=== PATIENT | male | born 1995 | race Caucasian/White ===

== ENCOUNTER 2018-02-24 15:27 | Emergency (ER) | payer OTHER, SELFPAY ==
[2018-02-24 15:33] VITALS: BP 125/74; PULSE 74; RESP 18; TEMP 36.9; O2SAT 100
--- NOTE | 2018-02-24 15:44 | PC.NURSE ---
Pt has been feeling intermittently nauseated and vomiting for about a week. Worsened over the weekend and has not been able to keep anything down. States he and his family did try out their new smoker and had some pork shoulder and everyone in the family had diarrhea for about a day after this. He was feeling ill prior to this, however. Denies abdominal pain, denies blood in vomit or stool. 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 He takes aloe vera and alkaline additives to his water for this, however he states he checks his pH daily and this has been normal. Last vomited this morning.
--- NOTE | 2018-02-24 16:03 | ED.NAVMDI ---
HPI - Nausea/Vomiting/Diarrhea <Erum Vera PA-C - Last Filed: 02/24/18 21:38> General Chief complaint: Nausea/Vomiting/Diarrhea Stated complaint: thinks he is dehydrated Time Seen by Provider: 02/24/18 15:37 Source: patient Mode of arrival: ambulatory Limitations: no limitations History of Present Illness HPI Narrative: This 23-year-old male comes to ED due to nausea, vomiting and diarrhea. He states that all last week he had intermittent vomiting and diarrhea. This got better for a few days over the weekend, but then started again on Thursday. He states that he would have 2-4 episodes of vomiting and diarrhea daily typically. This morning, he vomited once, mostly bilious and had 1 loose stool. He has not had blood in the stools. He has not had any urinary symptoms. He denies STD concerns. He denies any recent travel, dietary changes or possible food triggers. Mom states that no one else in the family has been sick though they had mentioned to nurse that family had a barbecued pork shoulder over the weekend that cause some GI upset. He has not taken any new medications or recent antibiotics. He states he really is not having any abdominal pain aside from some minimal cramping with the diarrhea. He states he has not had any fever but he has felt more cold and chilled today. He has not had any recent illness, upper respiratory symptoms, or other new complaints on systems review Related Data Previous Rx's Medication Instructions Recorded ondansetron 4 mg PO Q6-8H #8 tab 02/24/18 Allergies Allergy/AdvReac Type Severity Reaction Status Date / Time No Known Drug Allergies Allergy Verified 02/24/18 15:35 Review of Systems <Erum Vera PA-C - Last Filed: 02/24/18 21:38> Review of Systems All systems reviewed & are unremarkable except as noted in HPI and below Exam <Erum Vera PA-C - Last Filed: 02/24/18 21:38> Narrative Exam Narrative: GENERAL APPEARANCE: Patient sitting comfortably, in no distress. HEENT: PERRL, EOMI, no scleral icterus NECK: Supple LUNGS: Clear to auscultation bilaterally. HEART: Rate and rhythm regular, normal S1 and S2, no S3 or S4. ABDOMEN: Soft, nontender, nondistended, bowel sounds present x 4 quadrants, no masses palpable, no hepatosplenomegaly. EXTREMITIES: No edema, no cyanosis DERMATOLOGIC: No jaundice or exanthem NEUROLOGIC: Alert and oriented, normal speech and coordination Initial Vital Signs Initial Vital Signs: Vital Signs Temperature 98.4 F 02/24/18 15:33 Pulse Rate 74 02/24/18 15:33 Respiratory Rate 18 02/24/18 15:33 Blood Pressure 125/74 02/24/18 15:33 Pulse Oximetry 100 02/24/18 15:33 <Esperanza Burt DO - Last Filed: 02/25/18 08:54> Initial Vital Signs Initial Vital Signs: Vital Signs Temperature 98.4 F 02/24/18 15:33 Pulse Rate 74 02/24/18 15:33 Respiratory Rate 18 02/24/18 15:33 Blood Pressure 125/74 02/24/18 15:33 Pulse Oximetry 100 02/24/18 15:33 Course <Erum Vera PA-C - Last Filed: 02/24/18 21:38> Additional Information: patient reported feeling much improved during his stay and was tolerating oral fluids and crackers prior to d/c. He did not have any recurrent diarrhea or vomiting during his stay Orders Ordered: Discontinued Medications Sodium Chloride (Normal Saline 0.9%) 1,000 mls @ 1,000 mls/hr IV BOLUS ONE Stop: 02/24/18 17:42 Last Infusion: 02/24/18 18:14 Dose: 0 mls/hr Admin: 02/24/18 16:45 Dose: 1,000 mls/hr Ondansetron HCl (Zofran) 4 mg IV NOW ONE Stop: 02/24/18 16:22 Last Admin: 02/24/18 16:42 Dose: 4 mg Vital Signs - 8 hr 02/24/18 15:33 02/24/18 17:59 Temperature 98.4 F Pulse Rate 74 77 Respiratory Rate 18 Blood Pressure 125/74 Blood Pressure [Left Arm] 112/58 L Pulse Oximetry 100 99 <Esperanza Burt DO - Last Filed: 02/25/18 08:54> Orders Ordered: Discontinued Medications Sodium Chloride (Normal Saline 0.9%) 1,000 mls @ 1,000 mls/hr IV BOLUS ONE Stop: 02/24/18 17:42 Last Infusion: 02/24/18 18:14 Dose: 0 mls/hr Admin: 02/24/18 16:45 Dose: 1,000 mls/hr Ondansetron HCl (Zofran) 4 mg IV NOW ONE Stop: 02/24/18 16:22 Last Admin: 02/24/18 16:42 Dose: 4 mg Vital Signs - 8 hr 02/24/18 15:33 02/24/18 17:59 Temperature 98.4 F Pulse Rate 74 77 Respiratory Rate 18 Blood Pressure 125/74 Blood Pressure [Left Arm] 112/58 L Pulse Oximetry 100 99 MDM - Nausea/Vomiting/Diarrhea <Erum Vera PA-C - Last Filed: 02/24/18 21:38> Lab Data Result diagrams: 02/24/18 16:34 02/24/18 16:34 Lab Results 02/24/18 02/24/18 Range/Units 16:34 16:34 WBC 6.1 (4.5-11.0) X10^3/uL RBC 5.10 (4.5-5.9) X10^6/uL Hgb 15.7 (13.5-17.5) g/dL Hct 45.5 (41-53) % MCV 89.3 (80-100) fL MCH 30.8 (26-34) PG MCHC 34.5 (30-36) % RDW 13.4 (11.6-14.8) % Plt Count 171 (150-400) X10^3/uL Neut % (Auto) 65.2 (50-75) % Lymph % (Auto) 26.3 (25-40) % [place] % (Auto) 6.5 (3-14) % Eos % (Auto) 1.5 L (2-4) % Baso % (Auto) 0.5 (0-2) % Neut # (Auto) 4000 (4097-7131) /uL Sodium 142 (137-145) mmol/L Potassium 4.2 (3.4-5.1) mmol/L Chloride 103 (98-107) mmol/L Carbon Dioxide 28 (22-32) mmol/L BUN 11 (9-20) mg/dL Creatinine 1.00 (0.66-1.25) mg/dL Estimated GFR > 60.0 (>60) mL/min BUN/Creatinine Ratio 11.0 (6-22) Glucose 91 (70-100) mg/dL Calcium 9.4 (8.4-10.2) mg/dL Total Bilirubin 0.9 (0.2-1.3) mg/dL AST 23 (17-59) IU/L ALT 36 (21-72) IU/L Alkaline Phosphatase 55 (38-126) U/L Total Protein 7.4 (6.3-8.2) g/dL Albumin 4.6 (3.5-5.0) g/dL Globulin 2.8 (1.7-4.1) g/dL Albumin/Globulin Ratio 1.6 (1.0-2.8) Lipase 42 (23-300) U/L <Esperanza Burt, - Last Filed: 02/25/18 08:54> Lab Data Lab Results 02/24/18 02/24/18 Range/Units 16:34 16:34 WBC 6.1 (4.5-11.0) X10^3/uL RBC 5.10 (4.5-5.9) X10^6/uL Hgb 15.7 (13.5-17.5) g/dL Hct 45.5 (41-53) % MCV 89.3 (80-100) fL MCH 30.8 (26-34) PG MCHC 34.5 (30-36) % RDW 13.4 (11.6-14.8) % Plt Count 171 (150-400) X10^3/uL Neut % (Auto) 65.2 (50-75) % Lymph % (Auto) 26.3 (25-40) % [place] % (Auto) 6.5 (3-14) % Eos % (Auto) 1.5 L (2-4) % Baso % (Auto) 0.5 (0-2) % Neut # (Auto) 4000 (2937-1348) /uL Sodium 142 (137-145) mmol/L Potassium 4.2 (3.4-5.1) mmol/L Chloride 103 (98-107) mmol/L Carbon Dioxide 28 (22-32) mmol/L BUN 11 (9-20) mg/dL Creatinine 1.00 (0.66-1.25) mg/dL Estimated GFR > 60.0 (>60) mL/min BUN/Creatinine Ratio 11.0 (6-22) Glucose 91 (70-100) mg/dL Calcium 9.4 (8.4-10.2) mg/dL Total Bilirubin 0.9 (0.2-1.3) mg/dL AST 23 (17-59) IU/L ALT 36 (21-72) IU/L Alkaline Phosphatase 55 (38-126) U/L Total Protein 7.4 (6.3-8.2) g/dL Albumin 4.6 (3.5-5.0) g/dL Globulin 2.8 (1.7-4.1) g/dL Albumin/Globulin Ratio 1.6 (1.0-2.8) Lipase 42 (23-300) U/L Discharge Plan Departure Patient Disposition: Home Clinical Impression: Gastroenteritis Discharge Date/Time: 02/24/18 18:18 Interventions: ED Discharge Assessment Last Done: 02/24/18 18:17 Instructions: DI for Viral Gastroenteritis -- Adult, Gastroenteritis Diet Activity Restrictions/Additional Instructions: Since you are feeling better, you can return home. Please return as we talked about if you have any acutely worsening symptoms, or new symptoms such as fever. Otherwise, please use the prescription antinausea medication as needed, and try a bland diet with clear fluids, broths, and low residue foods such as bananas, white rice, white bread, and applesauce. When you tolerate those, you can advance to things like baked potato or baked chicken without the skin or plain pasta, and slowly resume your normal diet. You should see your PCP if you continue to have any symptoms as this may need further testing or a referral Prescriptions: New ondansetron 4 mg tablet,disintegrating 4 mg PO Q6-8H Qty: 8 RF: 0 Referrals: Sid Carbone MD [Physician] - <Esperanza Burt DO - Last Filed: 02/25/18 08:54> Cosign ED Attending Sharonature Attestation: I was immediately available in the department for consultation. Documentation has been reviewed. I agree with assessment and plan.
[2018-02-24] MEDS: ONDANSETRON 4 MG/2 ML INJ IV (16:42)
[2018-02-24] MEDS: SODIUM CHLORIDE 0.9% 1,000 ML 1000 ML IV (16:45)
[2018-02-24 16:50] LABS: Add Manual Diff / Slide Review NO; Basophils Percent Auto 0.5 % (0-2); Eosinophils Percent Auto 1.5 % (2-4); Hematocrit 45.5 % (41-53); Hemoglobin 15.7 g/dL (13.5-17.5); Lymphocytes Percent Auto 26.3 % (25-40); Mean Corpuscular HGB Conc 34.5 % (30-36); Mean Corpuscular Hemoglobin 30.8 PG (26-34); Mean Corpuscular Volume 89.3 fL (80-100); Monocytes Percent Auto 6.5 % (3-14); Neutrophils Absolute Auto 4000 /uL (3000-5900); Neutrophils Percent Auto 65.2 % (50-75); Platelet Count 171 X10^3/uL (150-400); Red Cell Distribution Width 13.4 % (11.6-14.8); White Blood Cell Count 6.1 X10^3/uL (4.5-11.0)
[2018-02-24 17:00] LABS: Alanine Aminotransferase 36 IU/L (21-72); Albumin 4.6 g/dL (3.5-5.0); Albumin Globulin Ratio 1.6 (1.0-2.8); Alkaline Phosphatase 55 U/L (38-126); Aspartate Aminotransferase 23 IU/L (17-59); Bilirubin Total 0.9 mg/dL (0.2-1.3); Blood Urea Nitrogen 11 mg/dL (9-20); Calcium 9.4 mg/dL (8.4-10.2); Carbon Dioxide 28 mmol/L (22-32); Chloride 103 mmol/L (98-107); Estimated Glomerular Filt Rate > 60.0 mL/min (>60); Globulin 2.8 g/dL (1.7-4.1); Glucose 91 mg/dL (70-100); HEMOLYSIS < 15 (0-50); Lipase 42 U/L (23-300); Potassium 4.2 mmol/L (3.4-5.1); Sodium 142 mmol/L (137-145); Total Protein 7.4 g/dL (6.3-8.2)
[2018-02-24 17:59] VITALS: BP 112/58; PULSE 77; O2SAT 99
== END 2018-02-24 18:18 | disposition home or self-care (01) ==
PROVIDERS: Emergency Provider Internal Medicine
DX: K52.9 Noninfective gastroenteritis and colitis, unspecified (principal)
CPT/HCPCS: 36591; 80053; 83690; 85025; 96361; 96374; 99283; 99284; J2405

== ENCOUNTER → 2018-05-18 08:56 | Outpatient (CLI) | payer OTHER, SELFPAY ==
--- NOTE | 2018-05-18 | DI.CT.S_ITS ---
PROCEDURE: CT ABDOMEN PELVIS W CON INDICATIONS: ABD PAIN, WEIGHT LOSS, BOWEL HABIT CHANGES TECHNIQUE: After the administration of oral and intravenous contrast, 5 mm thick sections acquired from the diaphragms to the symphysis. 5 mm thick coronal and sagittal reformats were performed. For radiation dose reduction, the following was used: automated exposure control, adjustment of mA and/or kV according to patient size. COMPARISON: None. FINDINGS: Image quality: Excellent. ABDOMEN: Lung bases: Lung bases are clear. Heart size is normal. Solid organs: Liver is normal in size and enhancement. Gallbladder negative. Biliary system is non-dilated. Pancreas enhances normally. Spleen is normal in size and enhancement. No adrenal nodules. Kidneys are normal in size and enhancement, without hydronephrosis. Peritoneum and bowel: No evidence of bowel obstruction. There is questionable terminal ileum wall thickening a limited evaluation given decompressed status. There are surrounding shotty lymph nodes without definite pathologic enlargement. There is ill-defined rectal wall thickening, which is greater than expected even in the collapsed state. No free fluid or air. Normal appendix. Nodes and vessels: No retroperitoneal or mesenteric adenopathy. Aorta and inferior vena cava are normal in caliber. Miscellaneous: No ventral hernias. PELVIS: Genitourinary: Bladder wall thickness is normal. Miscellaneous: No inguinal hernias or adenopathy. Bones: No suspicious bony lesions. No vertebral body compression fractures. IMPRESSION: CT appearance suggests rectal wall thickening, although limited evaluation given the collapsed state. Recommend clinical correlation and if clinically necessary further evaluation with lower endoscopy. This could reflect infectious proctocolitis or possibly inflammatory bowel disease. (Neoplasm statistically much less likely given patient age). There is also questionable wall thickening involving the terminal ileum however this finding suboptimally evaluated given bowel decompression. Elsewhere, negative examination as above. Dictated by: Shadi Erickson M.D. on 05/18/2018 at 13:35 Approved by: Shadi Erickson M.D. on 05/18/2018 at 13:46
[2018-05-18 09:53] LABS: Add Manual Diff / Slide Review NO; Basophils Percent Auto 0.5 % (0-2); Eosinophils Percent Auto 1.3 % (2-4); Hematocrit 46.7 % (41-53); Hemoglobin 16.1 g/dL (13.5-17.5); Lymphocytes Percent Auto 24.1 % (25-40); Mean Corpuscular HGB Conc 34.5 % (30-36); Mean Corpuscular Hemoglobin 30.8 PG (26-34); Mean Corpuscular Volume 89.3 fL (80-100); Monocytes Percent Auto 5.1 % (3-14); Neutrophils Absolute Auto 3800 /uL (3000-5900); Platelet Count 191 X10^3/uL (150-400); Red Blood Cell Count 5.23 X10^6/uL (4.5-5.9); Red Cell Distribution Width 13.4 % (11.6-14.8); White Blood Cell Count 5.5 X10^3/uL (4.5-11.0)
[2018-05-18 10:09] LABS: Alanine Aminotransferase 48 IU/L (21-72); Albumin 5.1 g/dL (3.5-5.0); Albumin Globulin Ratio 1.9 (1.0-2.8); Alkaline Phosphatase 54 U/L (38-126); Aspartate Aminotransferase 28 IU/L (17-59); BUN Creatinine Ratio 17.8 (6-22); Bilirubin Total 0.7 mg/dL (0.2-1.3); Blood Urea Nitrogen 16 mg/dL (9-20); Calcium 9.6 mg/dL (8.4-10.2); Carbon Dioxide 29 mmol/L (22-32); Chloride 100 mmol/L (98-107); Estimated Glomerular Filt Rate > 60.0 mL/min (>60); Globulin 2.7 g/dL (1.7-4.1); Glucose 97 mg/dL (70-100); HEMOLYSIS < 15 (0-50); Magnesium 1.9 mg/dL (1.6-2.3); Potassium 4.7 mmol/L (3.4-5.1); Sodium 143 mmol/L (137-145); Total Protein 7.8 g/dL (6.3-8.2)
[2018-05-18 10:47] LABS: Clostridium Difficile Tox PCR Negative for C. diff
== END ==
PROVIDERS: Visit Provider Physician Assistant
DX: R10.84 Generalized abdominal pain (principal); R19.4 Change in bowel habit; K21.9 Gastro-esophageal reflux disease without esophagitis; R63.4 Abnormal weight loss
CPT/HCPCS: 36415; 74177; 80053; 83735; 85025; 86317; 87015; 87045; 87177; 87427; 87493; 87899; Q9967